=== PATIENT | male | born 1965 | race Two or more races ===

== ENCOUNTER 2017-08-10 07:59 | Emergency (ER) | payer MEDICARE, BC, MEDICAID ==
[~2017-08-10] VITALS: Ht 160 cm; Wt 49.9 kg
[2017-08-10] MEDS ORDERED: IV NS 0.9% 500 ML BAG IV ONE (08:30)
[2017-08-10 08:44] LABS: BASOPHILS % (AUTO) 0.2 % (0.0-2.0); EOSINOPHILS # (AUTO) 0.1 /CMM (0.0-0.7); EOSINOPHILS % (AUTO) 1.5 % (0.0-6.0); HEMATOCRIT 46 % (39-51); HEMOGLOBIN 14.9 g/dL (13.5-17.5); LYMPHOCYTES # (AUTO) 1.8 /CMM (0.8-4.8); LYMPHOCYTES % (AUTO) 30.8 % (20.0-44.0); MEAN CORPUSCULAR HEMOGLOBIN 32 PG (26.0-33.0); MEAN CORPUSCULAR HGB CONC 33 g/dl (31.0-36.0); MEAN CORPUSCULAR VOLUME 98 fL (80-96); MONOCYTES # (AUTO) 0.5 /CMM (0.1-1.30); MONOCYTES % (AUTO) 9.1 % (2.0-12.0); NEUTROPHILS # (AUTO) 3.5 /CMM (1.8-8.9); NEUTROPHILS % (AUTO) 58.4 % (43.0-81.0); PLATELET COUNT (AUTO) 226 /CMM (150-450); RDW COEFFICIENT OF VARIATION 14.9 (11.5-15.0); RED BLOOD CELL COUNT(AUTO) 4.68 MIL/uL (4.5-6.0)
[2017-08-10] MEDS ORDERED: LORAZEPAM INJ 2 MG/ML VIAL ONE (08:47)
[2017-08-10 08:55] LABS: CALCIUM, SERUM 9.5 mg/dL (8.5-10.1); CARBON DIOXIDE 27 mmol/L (21-32); CHLORIDE 107 mmol/L (98-107); CREATININE 0.7 mg/dL (0.6-1.3); GLUCOSE 120 mg/dL (74-106); POTASSIUM 4.6 mmol/L (3.5-5.1); SODIUM SERUM 142 mmol/L (136-145); UREA NITROGEN, BLOOD 7 mg/dL (7-18)
[2017-08-10] MEDS ORDERED: LORAZEPAM INJ 2 MG/ML VIAL IV ONE (09:00)
[2017-08-10 09:06] LABS: TROPONIN I < 0.017 ng/mL (0.00-0.056)
[2017-08-10] MEDS ORDERED: LISINOPRIL-HCTZ 20-12.5 MG TAB (09:11)
[2017-08-10] MEDS ORDERED: PAROXETINE HCL 10 MG TABLET (09:11)
[2017-08-10] MEDS ORDERED: ATORVASTATIN 10 MG TABLET (09:11)
[2017-08-10] MEDS ORDERED: BANOPHEN 50 MG (09:11)
[2017-08-10] MEDS ORDERED: METFORMIN HCL 1000 MG (09:11)
[2017-08-10] MEDS ORDERED: DIVALPROEX SOD DR 500 MG TAB (09:11)
[2017-08-10 09:51] VITALS: BP 145/79
== END 2017-08-10 12:11 | disposition home or self-care (01) ==
LOC: ER 08:00
DX: F41.9 Anxiety disorder, unspecified (principal); I10 Essential (primary) hypertension; E11.9 Type 2 diabetes mellitus without complications; F32.9 Major depressive disorder, single episode, unspecified; F17.200 Nicotine dependence, unspecified, uncomplicated; Z79.84 Long term (current) use of oral hypoglycemic drugs
CPT/HCPCS: 36415; 71010; 80048; 84484; 85025; 93005; 96374; 99285; A4606; J2060; J7040; Z7610